=== PATIENT | female | born 1960 | race Caucasian/White ===

== ENCOUNTER 2017-04-24 19:14 | Observation (INO) | payer SELFPAY ==
[2017-04-24 20:05] LABS: PLATELET COUNT 296 10^3/uL (150-400)
[2017-04-24] MEDS ORDERED: NS 1,000 ML IV ONE (20:56)
[2017-04-24] MEDS ORDERED: fentaNYL 100 MCG/2 ML INJ IVP ONE ×2 (20:56→22:15)
[2017-04-24] MEDS ORDERED: ONDANSETRON 4 MG/2 ML VIAL IVP ONE (20:56)
--- NOTE | 2017-04-24 21:00 | EDPHY ---
H & P Smoking Status: Never smoked Time Seen by Provider: 04/24/17 19:48 HPI/ROS: CHIEF COMPLAINT: Right flank pain, abdominal pain HISTORY OF PRESENT ILLNESS: Patient is a 57-year-old female who presents emergency department with right flank pain and right lower quadrant pain. Her pain started earlier this morning. He came on fairly suddenly. She states she has moderate pain in right flank but most the pain is in the right lower quadrant. Mild nausea with no vomiting. She reports subjective fever. No dysuria, hematuria or frequency. Patient is in menopause REVIEW OF SYSTEMS: My complete review of systems is negative except as mentioned in the HPI. ( Lucila Singh) Past Medical/Surgical History: Negative Past surgical history: Negative Social history: Patient does not smoke (Lucila Singh) Physical Exam: 37.0, 121/64, 75, 16, 96% on room air GENERAL: Mild acute distress, alert. HEENT: Eyes normal to inspection, normal pharynx, no signs of dehydration. NECK: No thyromegaly, no lymphadenopathy, supple. RESPIRATORY: Clear to auscultation bilaterally, no rales, rhonchi or wheezing. CVS: Regular rate and rhythm, no rubs, murmurs, or gallops. ABDOMEN: Soft, right lower quadrant tenderness to palpation with no rebound or guarding, nondistended, no organomegaly. BACK: Normal to inspection, no CVA tenderness. SKIN: Normal color, no rash, warm, dry. No pallor. EXTREMITIES: No pedal edema, no calf tenderness, no Hom[place] sign or cords, no joint swelling. NEURO/PSYCH: Alert and oriented x3, normal mood and affect, normal motor sensory exam. (Lucila Singh S) Constitutional: Initial Vital Signs Temperature (C) 37.0 C 04/24/17 19:21 Heart Rate 75 04/24/17 19:21 Respiratory Rate 16 04/24/17 19:21 Blood Pressure 121/64 H 04/24/17 19:21 O2 Sat (%) 96 04/24/17 19:21 O2 Delivery Mode Room Air Allergies/Adverse Reactions: No Known Allergies Allergy (Unverified 04/24/17 19:25) Home Medications: Medication Instructions Recorded NK [No Known Home Meds] 04/24/17 Medical Decision Making - Diagnostics Imaging Results: Imaging Impressions Abdomen/Pelvis CT 04/24/17 20:57 Impression: 1. No nephrolithiasis or hydronephrosis. 2. Right adnexal 6.5- x 4- x 4-cm mass. Recommend ultrasound pelvis. 2. Enlarged heterogeneous uterus. 3. Mild constipation. 4. No bowel obstruction. 5. Subcentimeter hypodense nonspecific possible cyst in the liver. Findings and recommendations discussed with Emergency Department physician, Lucila Singh, at 2120 hours, on April 24, 2017. Final report concurs with initial preliminary interpretation. Attention: This CT examination is specifically designed to evaluate patients who are clinically suspected of having acute obstructive uropathy. This examination does not use radiographic contrast, and as such, provides only a limited evaluation of the abdomen, pelvis, and retroperitoneum. If there is further clinical suspicion for pathological conditions other than obstructive uropathy, a complete CT evaluation of the abdomen and pelvis utilizing intravenous, oral, and rectal contrast should be considered. Pelvic/Renal Ultrasound 04/24/17 21:51 Impression: 1. Anterior exophytic 10 x 7.5 x 10 cm leiomyoma. 2. Enlarged heterogenous right ovarian lesion which appears markedly enlarged on the CT with adjacent free fluid. Differential diagnosis includes right ovarian intermittent torsion or possible neoplasm when the CT and ultrasound images are compared. 3. Normal left ovary. Recommendation: Gynecologic surgical consult. Findings and recommendations discussed with Emergency Department physician, Dr. Mendoza at 23:40 hour, 04/24/2017. Final report concurs with initial preliminary interpretation. ED Course/Re-evaluation: In the emergency department I discussed possible etiologies with the patient. I answered all her questions. After evaluated the patient she was given fentanyl 100 mcg IV and Zofran 4 mg IV. Laboratory studies and CT scan were ordered. Patient's white count was normal however she did have a left shift. Chemistry panel was unremarkable. The patient did not want narcotic pain medication. She was given Toradol [address] of the abdomen and pelvis: Please refer the dictated report by Dr. Monty Mckinley. Patient has a complex mass in the right adnexa. This is not appear to be related to the appendix. The appendix was not visualized. Radiologist recommends ultrasound. I discussed the results with the patient answered all her questions. Ultrasound was ordered. 2300: The patient is signed out to Dr. Mendoza at change of shift awaiting ultrasound results. (Lucila Singh) [id number]: I spoke with OBGYN doctor Chrystal, who agrees to admit this patient for pain control observation and further evaluation of his right adnexal mass that may be intermittently torsing. I have updated the patient. She agrees for admission. She understands she needs to be admitted for further observation pain control possible surgery. ( Landry Mendoza) Differential Diagnosis: My differential includes but is not limited to appendicitis, kidney stone, ovarian cyst, ovarian torsion, small-bowel obstruction, perforation, hernia. The patient is postmenopausal. I doubt or ectopic . I did consider ovarian pathology as well as uterine pathology. (Lucila Singh) - Data Points Laboratory Results: Laboratory Results 04/24/17 20:00 04/24/17 20:00 04/24/17 04/24/17 04/24/17 23:00 20:00 20:00 WBC 7.75 10^3/uL 10^3/uL (3.80-9.50) RBC 4.86 10^6/uL 10^6/uL (4.18-5.33) Hgb 14.6 g/dL g/dL (12.6-16.3) Hct 42.1 % % (38.0-47.0) MCV 86.6 fL fL (81.5-99.8) MCH 30.0 pg pg (27.9-34.1) MCHC 34.7 g/dL g/dL (32.4-36.7) RDW 12.6 % % (11.5-15.2) Plt Count 296 10^3/uL 10^3/uL (150-400) MPV 10.1 fL fL (8.7-11.7) Neut % (Auto) 90.4 % H % (39.3-74.2) Lymph % (Auto) 6.8 % L % (15.0-45.0) [place] % (Auto) 2.1 % L % (4.5-13.0) Eos % (Auto) 0.0 % L % (0.6-7.6) Baso % (Auto) 0.4 % % (0.3-1.7) Nucleat RBC Rel Count 0.0 % % (0.0-0.2) Absolute Neuts (auto) 7.01 10^3/uL H 10^3/uL (1.70-6.50) Absolute Lymphs (auto) 0.53 10^3/uL L 10^3/uL (1.00-3.00) Absolute Monos (auto) 0.16 10^3/uL L 10^3/uL (0.30-0.80) Absolute Eos (auto) 0.00 10^3/uL L 10^3/uL (0.03-0.40) Absolute Basos (auto) 0.03 10^3/uL 10^3/uL (0.02-0.10) Absolute Nucleated RBC 0.00 10^3/uL 10^3/uL (0-0.01) Immature Gran % 0.3 % % (0.0-1.1) Immature Gran # 0.02 10^3/uL 10^3/uL (0.00-0.10) Sodium 141 mEq/L mEq/L (135-145) Potassium 3.8 mEq/L mEq/L (3.5-5.2) Chloride 105 mEq/L mEq/L (97-110) Carbon Dioxide 21 mEq/l L mEq/l (22-31) Anion Gap 15 mEq/L mEq/L (8-16) BUN 7 mg/dL mg/dL (7-23) Creatinine 0.7 mg/dL mg/dL (0.6-1.0) Estimated GFR > 60 Glucose 129 mg/dL H mg/dL (70-100) Calcium 9.3 mg/dL mg/dL (8.5-10.4) Urine Color YELLOW Urine Appearance HAZY Urine pH 5.0 (5.0-7.5) Ur Specific [place] 1.026 (1.002-1.030) Urine Protein NEGATIVE (NEGATIVE) Urine Ketones 2+ H (NEGATIVE) Urine Blood NEGATIVE (NEGATIVE) Urine Nitrate NEGATIVE (NEGATIVE) Urine Bilirubin NEGATIVE (NEGATIVE) Urine Urobilinogen NEGATIVE EU EU (0.2-1.0) Ur Leukocyte Esterase TRACE H (NEGATIVE) Urine RBC 3-5 /hpf H /hpf (0-3) Urine WBC 3-5 /hpf H /hpf (0-3) Ur Epithelial Cells TRACE /lpf /lpf (NONE-1+) Urine Mucus 4+ /lpf H /lpf (NONE-1+) Urine Glucose NEGATIVE (NEGATIVE) Medications Given: Discontinued Medications Fentanyl (Sublimaze) 100 mcg IVP EDNOW ONE Stop: 04/24/17 20:57 Last Admin: 04/24/17 21:29 Dose: Not Given Fentanyl (Sublimaze) 100 mcg IVP EDNOW ONE Stop: 04/24/17 22:16 Last Admin: 04/24/17 22:16 Dose: 100 mcg Sodium Chloride (Ns) 1,000 mls @ 0 mls/hr IV EDNOW ONE; Wide Open PRN Reason: Protocol Stop: 04/24/17 20:57 Last Admin: 04/24/17 21:14 Dose: 1,000 mls Ketorolac Tromethamine (Toradol) 30 mg IVP EDNOW ONE Stop: 04/24/17 21:26 Last Admin: 04/24/17 21:26 Dose: 30 mg Ondansetron HCl (Zofran) 4 mg IVP EDNOW ONE Stop: 04/24/17 20:57 Last Admin: 04/24/17 21:29 Dose: Not Given Departure - Departure Disposition: [facility] Inpatient Acute Clinical Impression: Right lower quadrant pain, Adnexal mass Condition: Good Referrals: NONE *PRIMARY CARE P,. [Primary Care Provider] - As per Instructions
[2017-04-24] MEDS ORDERED: KETOROLAC 30 MG/1 ML SDV ONE (21:23)
[2017-04-24] MEDS ORDERED: KETOROLAC 30 MG/1 ML SDV IVP ONE (21:25)
[2017-04-24] MEDS ORDERED: fentaNYL 100 MCG/2 ML INJ ONE (22:14)
[2017-04-24] MEDS ORDERED: HYDROmorphONE/DILAUDID 1 MG/ML INJ IVP ONE (23:55)
[2017-04-24] MEDS ORDERED: HYDROmorphONE/DILAUDID 1 MG/ML INJ ONE (23:55)
[2017-04-25 00:04] LABS: INR 1.03 (0.83-1.16); PROTIME(PATIENT) 13.7 SEC (12.0-15.0)
[2017-04-25] MEDS ORDERED: HYDROmorphONE/DILAUDID 1 MG/ML INJ IVP PRN (01:20)
[2017-04-25] MEDS ORDERED: ONDANSETRON 4 MG/2 ML VIAL IVP PRN (01:20)
[2017-04-25] MEDS ORDERED: ACETAMINOPHEN 500 MG TAB PO PRN (01:20)
[2017-04-25] MEDS ORDERED: NS 1,000 ML IV SCH (01:20)
[2017-04-25 02:53] VITALS: O2SAT 94
[2017-04-25] MEDS ORDERED: OXYCODONE/APAP 5/325 TAB PO PRN (06:12)
[2017-04-25] MEDS ORDERED: KETOROLAC 30 MG/1 ML SDV IVP PRN (06:13)
--- NOTE | 2017-04-25 06:15 | PDCONSULT ---
Inspection Clerk Note: Chief Complaint: RLQ pain, R lower back pain, acute HPI: Britt is a 57 yo post-menopausal (2011) female who presented to the ER on the evening of 04/24/17 with the acute onset of RLQ abdominal and R lower back pain yesterday afternoon - just standing in kitchen not doing anything in particular. Has never felt pain like this before. Doubled over initially, sharp and stabbing, mild nausea came w the pain, but no vomiting. Pain started to improve somewhat as she came by car to ER from home in [place]. In ER she had non-con CT looking for kidney stone - negative. Appy ruled out with that and subsequent US. CT suggested fibroid uterus and 6cm heterogeneous right adnexal complex/mass with small free simple fluid in pelvis. US performed for further characterization - confirmed 10cm anterior subserosal fibroid and pedunculated 5-6cm right sided fibroid as well. Normal right and left ovaries ( mass is seperate from ovary on the R) with normal doppler flow to them ruling out ovarian torsion. No vaginal bleeding - has not had any issues with PMB since menopause in 2011. No other health issues, no other surgeries. Just her one vaginal delivery. She was not aware she had fibroids, but admits that she stays away from Western medicine for the most part. Some recent UTI type sx and some general urinary urgency that is new the past 6 mos. By the time we were speaking further in her hospital bed, she reported that the belly pain had actually completely resolved and her back pain was only mild. She needed some Dilaudid in the ER, and one dose upon arriving to the floor - but has not had anything for many hours at this point and is in no pain currently. Objective: Exam: NAD, pleasant, conversant. Belly is soft, thin, ND/NT. Mild tenderness to deep palpation RLQ, none is LLQ. No abnormal fullness/masses transabdominally. Temp Pulse Resp BP Pulse Ox 37.4 C 96 18 115/62 94 04/25/17 02:00 04/25/17 02:00 04/25/17 02:00 04/25/17 02:00 04/25/17 02:00 Laboratory Results 04/24/17 20:00 04/24/17 20:00 04/25/17 04/24/17 04/24/17 00:03 23:00 22:58 WBC RBC Hgb Hct MCV MCH MCHC RDW Plt Count MPV Neut % (Auto) Lymph % (Auto) [place] % (Auto) Eos % (Auto) Baso % (Auto) Nucleat RBC Rel Count Absolute Neuts (auto) Absolute Lymphs (auto) Absolute Monos (auto) Absolute Eos (auto) Absolute Basos (auto) Absolute Nucleated RBC Immature Gran % Immature Gran # PT INR APTT Sodium Potassium Chloride Carbon Dioxide Anion Gap BUN Creatinine Estimated GFR Glucose Calcium Beta HCG, Qual POSITIVE Urine Color YELLOW Urine Appearance HAZY Urine pH 5.0 (5.0-7.5) Ur Specific [place] 1.026 (1.002-1.030) Urine Protein NEGATIVE (NEGATIVE) Urine Ketones 2+ H (NEGATIVE) Urine Blood NEGATIVE (NEGATIVE) Urine Nitrate NEGATIVE (NEGATIVE) Urine Bilirubin NEGATIVE (NEGATIVE) Urine Urobilinogen NEGATIVE EU EU (0.2-1.0) Ur Leukocyte Esterase TRACE H (NEGATIVE) Urine RBC 3-5 /hpf H /hpf (0-3) Urine WBC 3-5 /hpf H /hpf (0-3) Ur Epithelial Cells TRACE /lpf /lpf (NONE-1+) Urine Mucus 4+ /lpf H /lpf (NONE-1+) Urine Glucose NEGATIVE (NEGATIVE) Patient ABO/Rh O POSITIVE Antibody Screen NEGATIVE 04/24/17 04/24/17 04/24/17 21:58 20:00 20:00 WBC 7.75 10^3/uL 10^3/uL (3.80-9.50) RBC 4.86 10^6/uL 10^6/uL (4.18-5.33) Hgb 14.6 g/dL g/dL (12.6-16.3) Hct 42.1 % % (38.0-47.0) MCV 86.6 fL fL (81.5-99.8) MCH 30.0 pg pg (27.9-34.1) MCHC 34.7 g/dL g/dL (32.4-36.7) RDW 12.6 % % (11.5-15.2) Plt Count 296 10^3/uL 10^3/uL (150-400) MPV 10.1 fL fL (8.7-11.7) Neut % (Auto) 90.4 % H % (39.3-74.2) Lymph % (Auto) 6.8 % L % (15.0-45.0) [place] % (Auto) 2.1 % L % (4.5-13.0) Eos % (Auto) 0.0 % L % (0.6-7.6) Baso % (Auto) 0.4 % % (0.3-1.7) Nucleat RBC Rel Count 0.0 % % (0.0-0.2) Absolute Neuts (auto) 7.01 10^3/uL H 10^3/uL (1.70-6.50) Absolute Lymphs (auto) 0.53 10^3/uL L 10^3/uL (1.00-3.00) Absolute Monos (auto) 0.16 10^3/uL L 10^3/uL (0.30-0.80) Absolute Eos (auto) 0.00 10^3/uL L 10^3/uL (0.03-0.40) Absolute Basos (auto) 0.03 10^3/uL 10^3/uL (0.02-0.10) Absolute Nucleated RBC 0.00 10^3/uL 10^3/uL (0-0.01) Immature Gran % 0.3 % % (0.0-1.1) Immature Gran # 0.02 10^3/uL 10^3/uL (0.00-0.10) PT 13.7 SEC SEC (12.0-15.0) INR 1.03 (0.83-1.16) APTT 29.2 SEC SEC (23.0-38.0) Sodium 141 mEq/L mEq/L (135-145) Potassium 3.8 mEq/L mEq/L (3.5-5.2) Chloride 105 mEq/L mEq/L (97-110) Carbon Dioxide 21 mEq/l L mEq/l (22-31) Anion Gap 15 mEq/L mEq/L (8-16) BUN 7 mg/dL mg/dL (7-23) Creatinine 0.7 mg/dL mg/dL (0.6-1.0) Estimated GFR > 60 Glucose 129 mg/dL H mg/dL (70-100) Calcium 9.3 mg/dL mg/dL (8.5-10.4) Beta HCG, Qual Urine Color Urine Appearance Urine pH Ur Specific [place] Urine Protein Urine Ketones Urine Blood Urine Nitrate Urine Bilirubin Urine Urobilinogen Ur Leukocyte Esterase Urine RBC Urine WBC Ur Epithelial Cells Urine Mucus Urine Glucose Patient ABO/Rh Antibody Screen Imaging Impressions Abdomen/Pelvis CT 04/24/17 20:57 Impression: 1. No nephrolithiasis or hydronephrosis. 2. Right adnexal 6.5- x 4- x 4-cm mass. Recommend ultrasound pelvis. 2. Enlarged heterogeneous uterus. 3. Mild constipation. 4. No bowel obstruction. 5. Subcentimeter hypodense nonspecific possible cyst in the liver. Findings and recommendations discussed with Emergency Department physician, Lucila Singh, at 2120 hours, on April 24, 2017. Final report concurs with initial preliminary interpretation. Attention: This CT examination is specifically designed to evaluate patients who are clinically suspected of having acute obstructive uropathy. This examination does not use radiographic contrast, and as such, provides only a limited evaluation of the abdomen, pelvis, and retroperitoneum. If there is further clinical suspicion for pathological conditions other than obstructive uropathy, a complete CT evaluation of the abdomen and pelvis utilizing intravenous, oral, and rectal contrast should be considered. Pelvic/Renal Ultrasound 04/24/17 21:51 Impression: 1. Anterior exophytic 10 x 7.5 x 10 cm leiomyoma. 2. Enlarged heterogenous right ovarian lesion which appears markedly enlarged on the CT with adjacent free fluid. Differential diagnosis includes right ovarian intermittent torsion or possible neoplasm when the CT and ultrasound images are compared. 3. Normal left ovary. Recommendation: Gynecologic surgical consult. Findings and recommendations discussed with Emergency Department physician, Dr. Mendoza at 23:40 hour, 04/24/2017. Final report concurs with initial preliminary interpretation. Assessment & Plan: I actually had a long talk with Radiologist Dr. Friedman about her imaging prior to discussing things with Britt. After reviewing those pictures his feeling was that she indeed has two prominent fibroids one 10cm anterior subserosal and another pedunculated right sided 6cm that has radiographic features suggesting necrosis/ischemia within - suggesting this fibroid actually may be torsing as possible etiology. There is indeed normal fluid to ovaries and no ovarian cysts - no ovarian torsion unlikely. Difficult to tell if this could just be torsed fibroid vs some other adnexal complex/process on the right in addition to pedunculated fibroid. Small free fluid given the impression of potentially reactive/inflammatory changes around either torsed fibroid or other adnexal process. Clinically she actually is pain-free up on the floor. Exam very benign. VS normal, not requiring any more pain meds. Afebrile, infectious etiology seems unlikely. Overall I counseled her that diagnostic laparoscopy would be neccessary - and I' d recommend it - to figure out what's really going on. During that procedure we could identify and deal with other adnexal complex (tube/paratubal cyst issue , ovarian potentially) or address torsed fibroid if that was the real etiology. If fibroid that procedure could be just myomectomy, difficulty of that depends on the stalk of the fibroid. Other option would be to just plan laparoscopic hysterectomy to clarify this issue and also just remove the uterus with that other large 10cm fibroid as well - would discuss ovary removal. I offered that observation would be an option, but only if her pain really stays minimal/resolved and she's okay with close outpatient clinical follow-up with office visit and at least US with us this next week. She has no health insurance currently. Ultimately she very much wants to avoid any surgery, and strongly wishes to observe things for now. I counseled her that there are risks to that path, but that choice is obviously hers to make. We will have her eat, ambulate this AM, and see if her pain is controlled with PO meds. If so can dc home with plan to f/u with me for pelvic US and visit end of this next week.
[2017-04-25 09:01] VITALS: BP 109/57; PULSE 79; RESP 16; TEMP 99.2
[2017-04-25] MEDS ORDERED: IBUPROFEN 800 MG TAB PO SCH (14:00)
== END 2017-04-25 16:20 | disposition home or self-care (01) ==
LOC: FOB 04-25 01:29
PROVIDERS: ADMIT Obstetrics & Gynecology; ATTEND Obstetrics & Gynecology
DX: D25.9 Leiomyoma of uterus, unspecified (principal); R10.31 Right lower quadrant pain; E86.9 Volume depletion, unspecified; Z78.0 Asymptomatic menopausal state
CPT/HCPCS: G0378; J1170; J1885; J2405; J3010